=== PATIENT | female | born 1960 | race Caucasian/White ===

== ENCOUNTER 2020-02-12 12:44 | Emergency (ER) | payer OTHER ==
--- NOTE | 2020-02-12 14:12 | RAD ---
EXAM DESCRIPTION: Hip,Left 2 Views CLINICAL HISTORY: 59 years Female, fall COMPARISON: None. FINDINGS: Two views of the left hip show no acute fracture or malalignment. Minimal left hip joint space narrowing. No focal bone lesion or soft tissue abnormality. IMPRESSION: Mild degenerative changes without acute left hip abnormality. Electronically signed by: Paolo Payne MD 02/12/2020 2:11 PM CDT
--- NOTE | 2020-02-12 14:30 | RAD ---
EXAM DESCRIPTION: Pelvis CLINICAL HISTORY: 59 years Female, fall COMPARISON: None. TECHNIQUE: Single view radiograph of the pelvis. IMPRESSION: Partially obscured sacrum and coccyx by overlying bowel. Posterior fusion construct at L5-S1. No acute displaced fracture. No dislocation. Mild arthrosis of the hips. No dislocation. Mild stenosis but the SI joints. Mild colonic stool. Electronically signed by: Carlos James MD 02/12/2020 2:29 PM CDT
[2020-02-12 15:27] VITALS: TEMP 97
--- NOTE | 2020-02-12 15:55 | ED.PDOC ---
History of Present Illness - General Chief Complaint: Trauma Stated Complaint: left hip pain Time Seen by Provider: 02/12/20 13:25 Source: patient, family Exam Limitations: no limitations - History of Present Illness Initial Comments: TRIPPED AND FELL OVER GRANDCHILD TODAY, FELL ONTO L SIDE. NO HEAD COLLISION. NO LOC. CHILD WAS UNINJURED. Severity: moderate Improving Factors: movement Worsening Factors: nothing Associated Symptoms: denies symptoms Allergies/Adverse Reactions: Allergies Penicillins Allergy (Verified 02/12/20 13:44) Review of Systems - Review of Systems Constitutional: States: no symptoms reported EENTM: States: no symptoms reported Respiratory: States: no symptoms reported Cardiology: States: no symptoms reported Gastrointestinal/Abdominal: States: no symptoms reported Genitourinary: States: no symptoms reported Musculoskeletal: States: see HPI. Denies: back pain, neck pain Skin: States: no symptoms reported Neurological: States: no symptoms reported. Denies: paresthesia, weakness Endocrine: States: no symptoms reported Hematologic/Lymphatic: States: no symptoms reported All other Systems: Reviewed and Negative Past Medical History (General) - Patient Medical History Hx Stroke: No Hx Dementia: No Hx of COPD: No Hx Cardiac Disorders: No Hx Congestive Heart Failure: No Hx Diabetes: Yes Hx Gastroesophageal Reflux: No Surgical History: other Family Medical History - Family History Mother Family History: No Known Physical Exam - Physical Exam General Appearance: Alert, No apparent distress Eye Exam: bilateral normal Ears, Nose, Throat: hearing grossly normal, normal pharynx Neck: non-tender, full range of motion Respiratory: lungs clear, normal breath sounds Cardiovascular/Chest: regular rate, rhythm, no murmur Peripheral Pulses: radial,right: 2+, radial,left: 2+ Gastrointestinal/Abdominal: non tender, soft Back Exam: no CVA tenderness, no vertebral tenderness Extremity: normal range of motion, non-tender, normal inspection, no pedal edema, no calf tenderness, other - IS ABLE TO AMBULATE. Neurologic: no motor/sensory deficits, alert, normal mood/affect Skin Exam: normal color, warm/dry Lymphatic: no adenopathy Progress - Results/Orders Results/Orders: PELVIS AND HIP XRAYS NEG. L HIP CONTUSION. PT DECLINES PAIN MEDS. SHE STATES TYLENOL AND TIME ARE HELPING, AND THAT SHE HAS TIZANIDINE AT HOME IF SHE IS IN PAIN TONIGHT. Departure - Departure Clinical Impression: Contusion of left hip, initial encounter, Left hip pain Disposition: Discharge to Home or Self Care Condition: Good Departure Forms: ED Discharge - Pt. Copy, Patient Portal Self Enrollment Instructions: DI for Trauma Diet: resume usual diet Activity: increase activity as tolerated Referrals: Vitaliy Burnett MD [Primary Care Provider] - 1-2 Weeks Additional Instructions: Please see your doctor if the pain is not slowly improving over the next several days.
[2020-02-12 16:10] VITALS: BP 177/88; O2SAT 97
== END 2020-02-12 16:10 | disposition home or self-care (01) ==
LOC: ER 12:44
DX: S70.02XA Contusion of left hip, initial encounter (principal); E11.9 Type 2 diabetes mellitus without complications; W01.0XXA Fall on same level from slipping, tripping and stumbling without subsequent striking against object, initial encounter; Z88.0 Allergy status to penicillin; Y92.9 Unspecified place or not applicable